=== PATIENT | male | born 1945 | race Caucasian/White ===

== ENCOUNTER 2016-10-09 14:48 | Outpatient (CLI) | payer MEDICARE, BC ==
[~2016-10-09] VITALS: Ht 182.9 cm; Wt 124.5 kg
[2016-10-09 15:45] VITALS: BP 131/73; Ht 182.9 cm; Wt 124.5 kg
[2016-10-09] MEDS ORDERED: CIPRO500 MG PO (15:52)
[2016-10-09] MEDS ORDERED: ZESTORETIC 20/21 TAB PO (15:52)
[2016-10-09] MEDS ORDERED: ALDACTONE50 MG PO (15:52)
[2016-10-09] MEDS ORDERED: GLYBURIDE5 M1 PO (15:53)
[2016-10-09] MEDS ORDERED: GLUCOPHAGE500 MG PO (15:54)
--- NOTE | 2016-10-09 16:00 | NUR ---
KELLY SILVESTRE RN, VASCULAR ACCESS NURSE CALLS DR RAPHAEL AND REQUESTS PERMISSION TO TRY PATIENT'S SUBCLAVIAN PORT FOR ACCESS, KELLY SILVESTRE ACCESSES PORT AND PORT FLUSHES BUT DOES NOT DRAW. KELLY SILVESTRE CALLS DR RAPHAEL BACK AND INFORMS OF PATENCY OF PORT, OKAY TO USE PORT GIVEN
--- NOTE | 2016-10-09 16:13 | NUR ---
Called to outpatient department for PICC placement. On arrival, patient states he has a "port, unable to access." Left chest wall infusaport in place. Sterile prep to left chest wall and 20 gauge 1 inch needle inserted without any difficulty. Line flushes, unable to obtain blood return. Site dressed with biopatch and tegaderm dressing. Dr. Hidalgo notified of port access. Maureen Myers RN
[2016-10-09 16:29] LABS: BASOPHILS 0.2 % (0-2); EOSINOPHILS 4.9 % (0-7); HEMATOCRIT 41.9 % (42.0-54.0); HEMOGLOBIN 13.3 g/dL (13.5-17.5); IMMATURE GRANULOCYTES 0.2 % (0-5); MCH 26.6 pg (26.0-34.0); MCHC 31.7 g/dL (31.0-37.0); MCV 83.8 fL (80.0-100.0); MEAN PLATELET VOLUME 10.3 fL (7.4-10.4); MONOCYTES 7.6 % (2-11); NEUTROPHILS 70.1 % (40-80); PLATELET COUNT 232 10x3/uL (130-400); RDW 15.2 % (11.5-14.5); WBC 8.9 10x3/uL (4.8-10.8)
[2016-10-09 17:22] LABS: ALBUMIN 3.4 g/dL (3.4-5.0); ANION GAP 15.5 mmol/L (8-16); BILIRUBIN - TOTAL 0.18 mg/dL (0.2-1.3); C-REACTIVE PROTEIN 1.3 mg/dL (0.0-0.9); CALCIUM 8.7 mg/dL (8.5-10.1); CARBON DIOXIDE 25.3 mmol/L (21.0-32.0); CREATININE - SERUM 1.8 mg/dL (0.6-1.3); POTASSIUM - SERUM 4.8 mmol/L (3.5-5.1); PROTEIN - SERUM 6.9 g/dL (6.4-8.2)
--- NOTE | 2016-10-09 17:53 | NUR ---
NEEDLE REMOVED FROM PORT PASS FLUSHING WIT HEPRIN AND SALINE
== END 2016-10-09 17:30 | disposition home or self-care (01) ==
LOC: D.LAB 14:48 → D.OPS 14:48 → D.LAB 15:15 → D.OPS 15:30
PROVIDERS: Student in an Organized Health Care Education/Training Program
DX: E11.621 Type 2 diabetes mellitus with foot ulcer (principal); B99.9 Unspecified infectious disease